=== PATIENT | male | born 1965 | race Caucasian/White ===

== ENCOUNTER 2023-02-23 09:09 | Emergency (ER) | payer OTHER, SELFPAY ==
[2023-02-23 09:23] VITALS: BP 136/104; PULSE 106; RESP 16; TEMP 36.5; O2SAT 96; BMI 43.4
--- NOTE | 2023-02-23 09:42 | CRLHL7_ITS ---
For Patients: As a result of the Century Cures Act, medical imaging exams and procedure reports are released immediately into your electronic medical record. You may view this report before your referring provider. If you have questions, please contact your health care provider. Indication: Injury, fell over trunk hitch Technique: Three views Comparison: None Findings/Impression: The patient is status post right total knee replacement. There is a vertically oriented fracture through the patella extending to the level of the lateral aspect of the patellar component. This is best appreciated on the sunrise view. Small avulsion fragments are also present superior to the patella with some anterior soft tissue swelling at this level, possibly part of a quadriceps injury as well. Incidental note is also made of slight lucency deep to the tibial component on the lateral view which can represent some posterior loosening. Associated large knee effusion and soft tissue swelling. Dictated by Corey Saleem MD @ 02/23/2023 11:18:35 AM (Electronically Signed)
--- NOTE | 2023-02-23 09:43 | ED_ITS ---
HPI - Fall General Chief Complaint: Fall/Minor Trauma Stated Complaint: right knee injury, work comp Time Seen by Provider: 02/23/23 09:23 History of Present Illness HPI Narrative: This 57-year-old male comes in with an injury to his right knee. 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 He states that he had his right knee replaced in August of this year, 5 months ago. He had a septic joint afterwards and had the hardware replaced and spent a couple weeks in the hospital. Yesterday he twisted his knee. He was able to ambulate after this but had difficulty sleeping last night due to pain. He comes in today stating that he is not able to bear weight on his right leg and has swelling and warmth but no erythema in the right leg. He does not report any fevers. He was taking doxycycline but discontinued this 2 weeks ago because he has skin lesions on his left arm as he was holding his arm out the window in the sun while taking this medicine and has adverse effects from the medicine. Related Data Home Medications Medication Instructions Recorded Confirmed amiodarone 200 mg tablet 200 mg PO DAILY 02/23/23 02/23/23 apixaban 5 mg tablet (Eliquis) 5 mg PO DAILY 02/23/23 02/23/23 hydrochlorothiazide 12.5 mg tablet 12.5 mg PO DAILY 02/23/23 02/23/23 lisinopril 20 mg tablet 20 mg PO DAILY 02/23/23 02/23/23 meloxicam 7.5 mg tablet 7.5 mg PO DAILY 02/23/23 02/23/23 metformin 500 mg tablet 500 mg PO DAILY 02/23/23 02/23/23 metoprolol tartrate 50 mg tablet 50 mg PO DAILY 02/23/23 02/23/23 Allergies Allergy/AdvReac Type Severity Reaction Status Date / Time penicillin V Allergy Severe Anaphylaxis Verified 02/23/23 09:19 Review of Systems Status of ROS: Reports: 10 or more systems reviewed and unremarkable except as noted in History and below Narrative: Constitutional: No fevers, no weight gain or loss. Eyes: No discharge. No vision changes. HENT: No congestion, no sore throat, no ear pain. Cardiovascular: No chest pain, no palpitations. Respiratory: No shortness of breath, no wheezes, no cough. Gastrointestinal: No abdominal pain, no vomiting, no diarrhea. Genitourinary: No dysuria, no hematuria. Musculoskeletal: Right knee pain and swelling. Skin: No rashes, no pruritis. Neurological: No dizziness, weakness, sensory change, speech change. Endo/Heme/Allergies: No bruising or bleeding. No polydipsia. Pysch: no suicidality, no anxiety, no insomnia. All other systems reviewed and are negative. PFSH PFSH Social History Smoking Status: Unknown if ever smoked Do you use any of these nicotine containing products: None Second hand tobacco smoke exposure: No How often do you have a drink containing alcohol: monthly or less AUDIT-C Alcohol total score: 1 Non-prescribed substance use: denies use service: No Exam Narrative: Exam Narrative: Constitutional: Well-developed, well-nourished, no acute distress. HEENT: Normocephalic, atraumatic. Neck: Normal range of motion. Nontender. Supple. Heart: Regular. No murmurs. Tachycardia. Intact distal pulses. Lungs: Clear to auscultation. No chest discomfort. No wheezes, rhonchi, or rales. Abdomen: Normal bowel sounds. Nontender. No rebound tenderness. Genitalia: Deferred. Back: No midline tenderness. Normal range of motion. Extremities: Right knee effusion. No erythema. Skin: Intact. No rash. Warm. No erythema or pallor. Neurologic: No altered sensation. No weakness. Alert and oriented. Psychiatric: No suicidality. No anxiety or depression. No insomnia. Nursing notes and vitals signs are reviewed. Const: Vital Signs, click to edit/add: Vital Signs - 24 hr 02/23/23 09:23 02/23/23 11:12 Temperature 97.7 F 97.9 F Pulse Rate [Pulse Oximeter] 106 H 106 H Respiratory Rate 16 16 Blood Pressure [Ri ght Upper Arm] 136/104 H 131/86 Pulse Oximetry 96 98 Oxygen Delivery Me thod Room Air Room Air Course Vital Signs Vital signs: Initial Vital Signs Temperature 97.7 F 02/23/23 09:23 Temperature Source Temporal Artery Scan 02/23/23 09:23 Pulse Rate 106 H 02/23/23 09:23 Pulse Rhythm Regular 02/23/23 09:23 Pulse Strength 3+ Normal 02/23/23 09:23 Respiratory Rate 16 02/23/23 09:23 Blood Pressure 136/104 H 02/23/23 09:23 Blood Pressure Mean 114 H 02/23/23 09:23 Blood Pressure Position Sitting 02/23/23 09:23 Pulse Oximetry 96 02/23/23 09:23 Oxygen Delivery Method Room Air 02/23/23 09:23 Vital Signs Temperature 97.7 F 02/23/23 09:23 Pulse Rate 106 H 02/23/23 09:23 Respiratory Rate 16 02/23/23 09:23 Blood Pressure 136/104 H 02/23/23 09:23 Pulse Oximetry 96 02/23/23 09:23 Oxygen Delivery Method Room Air 02/23/23 09:23 Temperature 97.9 F 02/23/23 11:12 Pulse Rate 106 H 02/23/23 11:12 Respiratory Rate 16 02/23/23 11:12 Blood Pressure 131/86 02/23/23 11:12 Pulse Oximetry 98 02/23/23 11:12 Oxygen Delivery Method Room Air 02/23/23 11:12 MDM - Fall MDM Narrative Medical decision making narrative: This patient comes in reporting pain and swelling in his right knee. X-ray imaging does show suspicion of a vertical oriented fracture through the patella. The patient is able to raise his leg up off the bed. He does have a significant effusion and is on anticoagulants. He resides in [place] and is a electric truck crane operator. He is planning to fly home to follow-up with his primary physicians. He received a knee immobilizer and crutches. He also received prescription for [place] for pain relief. Lab Data Labs: Lab Results 02/23/23 Range/Units 09:53 WBC 8.87 (4.50-11.00) K/uL RBC 4.02 L (4.30-5.90) m/uL Hgb 11.6 L (13.5-17.5) gm/dL Hct 36.5 L (37.0-53.0) % MCV 91 (80-100) fL MCH 29 (26-34) pg MCHC 32 (32-36) gm/dL RDW Coeff of Mohan 14.8 (11.5-15.5) % Plt Count 178 (140-440) K/uL Neut % (Auto) 76.8 H (42.0-72.0) % Lymph % (Auto) 12.7 L (20-44) % Ralls % (Auto) 9.2 (0.0-11.0) % Eos % (Auto) 0.9 (0.0-7.0) % Baso % (Auto) 0.2 (0.0-3.0) % Neut # (Auto) 6.80 (1.7-7.0) K/uL Lymph # (Auto) 1.10 (0.90-2.90) K/uL Ralls # (Auto) 0.80 (0.00-0.90) K/UL Eos # (Auto) 0.08 (0.00-0.50) K/uL Baso # (Auto) 0.02 (0.00-0.30) K/uL Abs Immat Gran (auto) 0.02 (0.00-0.30) K/uL Imm/Tot Granulo (auto) 0.2 % Discharge Plan Discharge Clinical Impression: Fracture, patella Patient Disposition: Home, Self-Care Condition: Unchanged Instructions: Knee Pain (ED), Knee Immobilizer (ED) Additional Instructions: Wear knee immobilizer and use crutches for ambulating. Take medication as needed and indicated. Follow up with orthopedic clinic. Prescriptions: No Action meloxicam 7.5 mg tablet 7.5 mg PO DAILY metoprolol tartrate 50 mg tablet 50 mg PO DAILY metformin 500 mg tablet 500 mg PO DAILY Eliquis 5 mg tablet 5 mg PO DAILY lisinopril 20 mg tablet 20 mg PO DAILY hydrochlorothiazide 12.5 mg tablet 12.5 mg PO DAILY amiodarone 200 mg tablet 200 mg PO DAILY Follow Up/Referrals: Provider,Not a Local [Primary Care Provider] - Stand Alone Forms: [facility] Info Instructions
--- OUTSIDE RECORDS SUMMARY | 2023-02-23 09:56 | XMS_ITS | Summary of Care ---
Author Name Unknown Organization [facility] Address [address] [place] [address]- Encounter 11/07/22 - 11/22/22 [place] [id number] [facility] [address] [place] [address]- Discharge Disposition: Discharged to Home or Self Care Attending Physician: Keaton Rosario D.O. Admitting Physician: Keaton Rosario D.O. Allergies, Adverse Reactions, Alerts Substance Reaction Severity Status penicillins Shortness of breath Active Mushrooms Active Medications amiodarone 200 mg oral tablet 200 mg = 1 tab, Tab, Oral, BID, 60 tab, 0 Refill(s), Route to Pharmacy Electronically, [id number], [facility], 11/17/22 15:52:00 EDT, Height/Length Dosing, cm, 154.5, 11/17/22 15:52:00 EDT, Weight Dosing, kg Start Date: 11/20/22 Status: Ordered ceFAZolin 2 g injection 2 gm = 1 vial, Powder-Inj, IV Piggyback, q8hr, 0 Refill(s) Start Date: 11/20/22 Status: Ordered cyclobenzaprine 5 mg oral tablet 10 mg = 2 tab, Tab, Oral, TID PRN, 60 tab, 0 Refill(s), Spasm, Route to Pharmacy Electronically, [id number], [facility], 11/17/22 15:52:00 EDT, Height/Length Dosing, cm, 154.5, 11/17/22 15:52:00 EDT, Weight Dosing, kg Start Date: 11/20/22 Status: Ordered Eliquis 5 mg oral tablet 5 mg, = 1 tab, Tab, Oral, BID, 60 tab, 0 Refill(s), Route to Pharmacy Electronically, [id number], [facility], 11/17/22 15:52:00 EDT, Height/Length Dosing, cm, 154.5, Weight Dosing, 11/17/22 15:52:00 EDT, kg, Atrial fibrillation Start Date: 11/20/22 Status: Ordered gabapentin 100 mg oral capsule 100 mg, 1 cap, Indication: Diabetic Peripheral Neuropathy Cap, Oral, TID, 90 cap, 0 Refill(s), Route to Pharmacy Electronically, [id number], [facility], 11/17/22 15:52:00 EDT, Height/Length Dosing, cm, 154.5, 11/17/22 15:52:00 EDT, kg, Weight Dosing Start Date: 11/20/22 Status: Ordered lidocaine 5% topical film 1 patch, Film, Transdermal, qAM, 30 patch, 0 Refill(s), Route to [facility] Electronically, [id number], [facility], 11/17/22 15:52:00 EDT, Height/Length Dosing, cm, 154.5, 11/17/22 15:52:00 EDT, Weight Dosing, kg Start Date: 11/20/22 Status: Ordered lisinopril 5 mg oral tablet 5 mg = 1 tab, Tab, Oral, Daily, 30 tab, 0 Refill(s), Route to Pharmacy Electronically, [id number], [facility], 11/17/22 15:52:00 EDT, Height/Length Dosing, cm, 154.5, 11/17/22 15:52:00 EDT, Weight Dosing, kg Start Date: 11/20/22 Status: Ordered metoprolol succinate 50 mg oral tablet, extended release 200 mg = 4 tab, Tab-ER, Oral, Daily, 120 tab, 0 Refill(s), Route to Pharmacy Electronically, [id number], [facility], 11/17/22 15:52:00 EDT, Height/Length Dosing, cm, 154.5, 11/17/22 15:52:00 EDT, Weight Dosing, kg Start Date: 11/20/22 Status: Ordered Mobic 7.5 mg oral tablet 15 mg = 2 tab, Tab, Oral, Daily, 60 tab, 0 Refill(s), Route to [facility]acy Electronically, [id number], [facility], 11/17/22 15:52:00 EDT, Height/Length Dosing, cm, 154.5, 11/17/22 15:52:00 EDT, Weight Dosing, kg Start Date: 11/20/22 Status: Ordered oxyCODONE 5 mg oral tablet 5 mg = 1 tab, Tab, Oral, q4hr PRN, 24 tab, 0 Refill(s), PAIN (Scale 4-6), Route to Pharmacy Electronically, [id number], [facility], 11/17/22 15:52:00 EDT, Height/Length Dosing, cm, 154.5, 11/17/22 15:52:00 EDT, kg, Weight Dosing Start Date: 11/20/22 Status: Ordered rifAMPin 150 mg oral capsule 300 mg, 2 cap, Cap, Oral, q12hr, 0 Refill(s), Indication: Bone and Joint Infections Start Date: 11/20/22 Status: Ordered Voltaren 1% topical gel 4 gm, Gel, Topical, TID, 100 gm, Refill(s) 0, Route to [facility]acy Electronically, [id number], [facility], 11/17/22 15:52:00 EDT, Height/Length Dosing, cm, 154.5, 11/17/22 15:52:00 EDT, Weight Dosing, kg Start Date: 11/20/22 Status: Ordered Problem List Condition Effective Dates Status Health Status Inform ant Activity tolerance(Confirmed) Active Arthritis(Confirmed) Active At risk of venous thromboembolus(Confirmed) 1 11/08/22 Active Atrial fibrillation(Confirmed) Active CKD stage 3(Confirmed) Active Diabetes mellitus(Confirmed) Active Gait abnormality(Confirmed) Active HTN - Hypertension(Confirmed) Active Obesity(Confirmed) Active Range of motion(Confirmed) Active s/p I & D(Confirmed) Active septic Right TKA(Confirmed) Active Sleep apnea(Confirmed) Active Wound infection(Confirmed) Active 1Problem added by Discern Expert Rule: EBN_VTERISKPROB_3 Results Laboratory List Name Date C-Reactive Protein, Quant - LC 11/19/22 Comp. Metabolic Panel (12) - LC (CMP (12 ) - LC) 11/19/22 Complete Blood Count w/Diff - LC (CBC w/ diff - LC) 11/19/22 Glucose, POC 11/13/22 Glucose, POC 11/13/22 Glucose, POC 11/13/22 Urine Culture, Routine -LC 11/11/22 _Urine Cult MINH (Result) 11/11/22 C-Reactive Protein, Quant - LC 11/09/22 Hemoglobin A1c - LC 11/09/22 Sedimentation Rate-Westergren - LC Uric Acid, Serum - LC 11/08/22 CBC w/o Diff or Plt - LC 11/08/22 Comp. Metabolic Panel (14) - LC 11/08/22 Prealbumin - LC 11/08/22 Most recent to oldest [Reference Range]: 1 2 3 Creatinine Level 0.72 mg/dL *NA* (11/19/22 5:00 AM) 0.67 mg/dL *LOW* (11/08/22 5:00 AM) Estimated Creatinine Clearance 124.42 mL/min 1 (11/19/22 5:00 AM) 133.70 mL/min 2 (11/17/22 3:48 PM) 133.70 mL/min 3 (11/10/22 2:57 PM) Albumin, Serum - LC [3.5-5.7 g/dL] 2.6 g/dL *LOW* (11/19/22 5:00 AM) 2.4 g/dL *LOW* (11/08/22 5:00 AM) Alkaline Phosphatase, S - LC [34-104 U/L] 66 U/L *NA* (11/19/22 5:00 AM) 51 U/L *NA* (11/08/22 5:00 AM) AST (SGOT) - LC [<39 U/L] 33 U/L 4 *NA* (11/19/22 5:00 AM) 19 U/L *NA* (11/08/22 5:00 AM) Bilirubin, Total - LC [<=1.0 mg/dL mg/dL] 0.5 mg/dL *NA* (11/19/22 5:00 AM) 0.9 mg/dL *NA* (11/08/22 5:00 AM) BUN - LC [7-25 mg/dL] 8 mg/dL *NA* (11/19/22 5:00 AM) 9 mg/dL *NA* (11/08/22 5:00 AM) Calcium, Serum - LC [8.6-10. 3 mg/dL] 7.8 mg/dL *LOW* (11/19/22 5:00 AM) 7.7 mg/dL *LOW* (11/08/22 5:00 AM) C-Reactive Protein, Quant - LC [<=1.00 mg/dL] 7.47 mg/dL 5 *HI* (11/19/22 5:00 AM) 15.62 mg/dL 6 *HI* (11/09/22 5:00 AM) Creatinine, Serum - LC [0.70-1.30 mg/dL] 0.72 mg/dL *NA* (11/19/22 5:00 AM) 0.67 mg/dL *LOW* (11/08/22 5:00 AM) Glucose, Serum - LC [74-109 mg/dL] 80 mg/dL *NA* (11/19/22 5:00 AM) 107 mg/dL *NA* (11/08/22 5:00 AM) Hematocrit - LC [39.0-50.0 %] 29.2 % *LOW* (11/19/22 5:00 AM) 28.1 % *LOW* (11/08/22 5:00 AM) Hemoglobin - LC [13.5-17.5 g/dL] 9.3 g/dL *LOW* (11/19/22 5:00 AM) 9.3 g/dL *LOW* (11/08/22 5:00 AM) Hemoglobin A1c - LC [4.0-5.5 %] 6.9 % 7 *HI* (11/09/22 5:00 AM) Potassium, Serum - LC [3.5-5.1 mmol/L] 3.5 mmol/L *NA* (11/19/22 5:00 AM) 4.2 mmol/L *NA* (11/08/22 5:00 AM) Prealbumin - LC [17.0-34.0 mg/dL] 5.9 mg/dL 8 *LOW* (11/08/22 5:00 AM) Protein, Total, Serum - LC [6.4-8.9 g/dL] 7.0 g/dL *NA* (11/19/22 5:00 AM) 6.9 g/dL *NA* (11/08/22 5:00 AM) Sedimentation Rate-Westergre n - LC [0-20] 87 9 *HI* (11/09/22 5:00 AM) Sodium, Serum - LC [136-145 mmol/L] 140 mmol/L *NA* (11/19/22 5:00 AM) 135 mmol/L *LOW* (11/08/22 5:00 AM) Uric Acid, Serum - LC [4.4-7.6 mg/dL] <1.5 mg/dL 10 *LOW* (11/08/22 4:00 PM) Urine Culture, Routine - LC Final report 11 *NA* (11/11/22 5:34 PM) WBC - LC [4.00-10.50 10^3/uL] 5.70 10^3/ uL *NA* (11/19/22 5:00 AM) 9.70 10^3/uL *NA* (11/08/22 5:00 AM) A/G Ratio - LC [1.0-2.0] 0.6 *LOW* (11/19/22 5:00 AM) 0.5 *LOW* (11/08/22 5:00 AM) MCHC - LC [31.0-36.0 g/dL] 31.9 g/dL *NA* (11/19/22 5:00 AM) 33.0 g/dL *NA* (11/08/22 5:00 AM) Eos (Absolute) - LC [0.0-0.5 10^3/uL] 0.2 10^3/uL *NA* (11/19/22 5:00 AM) ALT (SGPT) - LC [7-52 U/L] 8 U/L 12 *NA* (11/08/22 5:00 AM) Carbon Dioxide, Total - LC [21-31 mmol/L] 29 mmol/L 13 *NA* (11/08/22 5:00 AM) Baso (Absolute) - LC [0.0-0. 3 10^3/uL] 0.0 10^3/uL 14 *NA* (11/19/22 5:00 AM) Lymphs (Absolute) - LC [1.0-5.2 10^3/uL] 1.9 10^3/uL *NA* (11/19/22 5:00 AM) MCH - LC [26.0-34.0 pg] 28.7 pg *NA* (11/19/22 5:00 AM) 29.7 pg *NA* (11/08/22 5:00 AM) Neutrophils (Absolute) - LC [1.8-8.0 10^3/uL] 3.0 10^3/uL *NA* (11/19/22 5:00 AM) Monocytes(Absolute) - LC [0.0-0.9 10^3/uL] 0.6 10^3/uL *NA* (11/19/22 5:00 AM) Globulin, Total - LC [2.7-4. 2 g/dL] 4.4 g/dL *HI* (11/19/22 5:00 AM) Eos - LC [0.0-8.0 %] 2.7 % *NA* (11/19/22 5:00 AM) BUN/Creatinine Ratio - LC [8-20] 11 *NA* (11/19/22 5:00 AM) 13 *NA* (11/08/22 5:00 AM) Neutrophils - LC [30.0-75.0 %] 53.4 % *NA* (11/19/22 5:00 AM) eGFR If Africn Am - LC [>=60] >60 15 *NA* (11/19/22 5:00 AM) >60 16 *NA* (11/08/22 5:00 AM) Urine Nmtw0Lvgh - LC No growth 17 *NA* (11/11/22 5:34 PM) Basos - LC [0.0-2.0 %] 0.7 % *NA* (11/19/22 5:00 AM) RDW - LC [12.0-16.0 %] 15.5 % *NA* (11/19/22 5:00 AM) 14.8 % 18 *NA* (11/08/22 5:00 AM) Platelets - LC [150-450 10^3/uL] 178 10^3/uL 19 *NA* (11/19/22 5:00 AM) Chloride, Serum - LC [98-107 mmol/L] 101 mmol/L *NA* (11/19/22 5:00 AM) 97 mmol/L *LOW* (11/08/22 5:00 AM) Monocytes - LC [0.0-14.0 %] 10.4 % *NA* (11/19/22 5:00 AM) MCV - LC [81.0-98.0 fL] 90.0 fL *NA* (11/19/22 5:00 AM) 90.0 fL *NA* (11/08/22 5:00 AM) RBC - LC [4.32-5.72 10^6/uL] 3.24 10^6/u L *LOW* (11/19/22 5:00 AM) 3.13 10^6/uL *LOW* (11/08/22 5:00 AM) Lymphs - LC [24.0-44.0 %] 32.8 % *NA* (11/19/22 5:00 AM) Glucose POC RALS [74-106 mg/dL] 100 mg/dL (11/13/22 4:52 PM) 117 mg/dL *HI* (11/13/22 11:11 AM) 128 mg/dL *HI* (11/13/22 7:00 AM) 1Result Comment: Calculated using method: Cockcroft-Gault (default) Calculated using Formula : (140-ageInYears)*IBW/(72*scrInMGperDL) Age: 57 (01564828590.0) Serum Creatinine: 0.72 mg/dL (39198969787.0) Height: 183 cm (97855342779.0) Weight: 154.5 kg (IBW = 77.709 kg) 2Result Comment: Calculated using method: Cockcroft-Gault (default) Calculated using Formula : (140-ageInYears)*IBW/(72*scrInMGperDL) Age: 57 (07319158581.0) Serum Creatinine: 0.67 mg/dL (82704974113.0) Height: 183 cm (89942401555.0) Weight: 154.5 kg (IBW = 77.709 kg) 3Result Comment: Calculated using method: Cockcroft-Gault (default) Calculated using Formula : (140-ageInYears)*IBW/(72*scrInMGperDL) Age: 57 (43733052463.0) Serum Creatinine: 0.67 mg/dL (91063166555.0) Height: 183 cm (81299206312.0) Weight: 154.5 kg (IBW = 77.709 kg) 4Result Comment: Performed At: [address] [id number] Matthew Santiago MD Ph:[phone] 5Result Comment: Performed At: [address] [id number] Matthew Santiago MD Ph:[phone] 6Result Comment: Performed At: [address] [id number] Matthew Santiago MD Ph:[phone] 7Result Comment: Performed At: [address] [id number] Matthew Santiago MD Ph:[phone] 8Result Comment: Performed At: [address] [id number] Matthew Santiago MD Ph:[phone] 9Result Comment: Performed At: [address] [id number] Matthew Santiago MD Ph:[id number] 10Result Comment: Performed At: [address] [id number] Matthew Santiago MD Ph:[phone] 11Result Comment: Performed At: [facility] [id number] Brandt Savage MD Ph:[phone] 12Result Comment: Performed At: [address] [id number] Matthew Santiago MD Ph:[phone] 13Result Comment: Anion Gap 13 10-17 14Result Comment: Performed At: [address] [id number] Matthew Santiago MD Ph:[phone] 15Result Comment: Units: mL/min/1.73sq m 16Result Comment: Units: mL/min/1.73sq m 17Result Comment: Performed At: [facility] [address] [place], [place] [id number] Brandt Savage MD Ph:[phone] 18Result Comment: Performed At: [address] [id number] Matthew Santiago MD Ph:[phone] 19Result Comment: MPV 9.2 fL 7.4-10.4 Vital Signs Most recent to oldest [Reference Range]: 1 2 3 Temperature Oral F [96.4-99.1 DegF] 97.8 DegF (11/22/22 5:12 AM) 97.9 DegF (11/21/22 7:50 PM) 98.3 DegF (11/21/22 1:01 PM) Peripheral Pulse Rate [60-100 bpm] 92 bpm (11/22/22 8:43 AM) 85 bpm (11/22/22 5:12 AM) 87 bpm (11/21/22 7:50 PM) Respiratory Rate [14-20 br/min] 17 br/min (11/22/22 5:12 AM) 17 br/min (11/21/22 7:50 PM) 18 br/min (11/21/22 3:17 AM) Blood Pressure [90-140/60-90 mmHg] 142/86mmHg *HI* (11/22/22 8:43 AM) 111/79mmHg (11/22/22 5:12 AM) 144/93mmHg *HI* (11/21/22 7:50 PM) Mean Arterial Pressure, Cuff 105 mmHg (11/22/22 8:43 AM) 110 mmHg (11/21/22 7:50 PM) 113 mmHg (11/21/22 1:03 PM) Extremity used to obtain blood pressure Right Arm (11/22/22 5:12 AM) Right Arm (11/21/22 7:50 PM) Right Arm (11/21/22 3:17 AM) Cuff Size. Large (11/22/22 5:12 AM) Large (11/21/22 7:50 PM) Large (11/21/22 3:17 AM) Vital Signs Additional Information Vitals taken semi supine in bed. (11/08/22 11:30 AM) Temperature Oral 36.6 DegC 1 (11/22/22 5:12 AM) 36.6 DegC 2 (11/21/22 7:50 PM) 36.8 DegC 3 (11/21/22 1:01 PM) 1Result Comment: Charted by SYSTEM secondary to charting of Temperature Oral F in [employer]. [id number] Rule: CARETRACKER_CALCULATIONS 2Result Comment: Charted by SYSTEM secondary to charting of Temperature Oral F in [employer]. [id number] Rule: CARETRACKER_CALCULATIONS 3Result Comment: Charted by SYSTEM secondary to charting of Temperature Oral F on a Vitals Monitor. Rule: VITALSLINK_CALCULATIONS_2
[2023-02-23 10:04] LABS: Basophils Absolute Auto 0.02 K/uL (0.00-0.30); Basophils Percent Auto 0.2 % (0.0-3.0); Eosinophils Absolute Auto 0.08 K/uL (0.00-0.50); Eosinophils Percent Auto 0.9 % (0.0-7.0); Hematocrit 36.5 % (37.0-53.0); Hemoglobin* 11.6 gm/dL (13.5-17.5); Immature Granulocytes Abs Auto 0.02 K/uL (0.00-0.30); Immature Granulocytes Pct Auto 0.2 %; Lymphocytes Percent Auto 12.7 % (20-44); Mean Corpuscular HGB Conc 32 gm/dL (32-36); Mean Corpuscular Hemoglobin 29 pg (26-34); Mean Corpuscular Volume 91 fL (80-100); Monocytes Percent Auto 9.2 % (0.0-11.0); Neutrophils Percent Auto 76.8 % (42.0-72.0); Platelet Count* 178 K/uL (140-440); RDW Coefficient of Variation % 14.8 % (11.5-15.5); Red Blood Count 4.02 m/uL (4.30-5.90); White Blood Count* 8.87 K/uL (4.50-11.00)
[2023-02-23 10:06] LABS: Slide Review Reflex No
[2023-02-23 11:12] VITALS: BP 131/86; PULSE 106; RESP 16; TEMP 36.6; O2SAT 98
--- NOTE | 2023-02-23 12:10 | ED.NURSE ---
patient was discharged. Knee immobilizer applied to right leg. Provided crutches and training with crutches. Patient was calling [employer] for ride home. Hand written prescription was given to patient for [facility]. Patient is planning to fly home to see orthopedic surgeon. All questions answered. 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
== END 2023-02-23 12:10 | disposition home or self-care (01) ==
PROVIDERS: Emergency Provider Emergency Medicine Emergency Medical Services
DX: S82.001A Unspecified fracture of right patella, initial encounter for closed fracture (principal); X58.XXXA Exposure to other specified factors, initial encounter
CPT/HCPCS: 29505; 36415; 73562; 85025; 99283; 99284